=== PATIENT | female | born 1940 | race Caucasian/White ===

== ENCOUNTER → 2016-08-30 | Outpatient (CLI) | payer OTHER ==
[~2016-08-30] MED LIST: HYOSCYAMIN125 MCG/5 PO; HYOSCYAMINE0.15 MG; INDERAL LA 80 M80 M1; MACROBID 100 M100 M1 PO; NORCO 5-325 TA1 EACH PO; PERCOCET 5-3251 EACH PO; POTASSIUM20 PO; PREDNISONE50 MG PO; PRILOSEC 20 MG20 MG
== END ==
LOC: RAD 00:46
DX: Z12.31 Encounter for screening mammogram for malignant neoplasm of breast (principal)

== ENCOUNTER → 2016-11-08 | Outpatient (CLI) | payer OTHER | LOC: RAD 13:48 | DX: M19.012 Primary osteoarthritis, left shoulder (principal); M79.602 Pain in left arm ==

== ENCOUNTER → 2018-08-12 | Outpatient (CLI) | payer OTHER ==
[~2018-08-12] VITALS: Ht 157.5 cm; Wt 55.5 kg
[~2018-08-12] MED LIST changes: +ACETAMINOPHEN-1 EAC1 PO; +ESTRADIOL1 EAC7 TOP; +INDAPAMIDE2.5 MG PO; +KLOR-CON M1010 MEQ PO; +PRILOSEC OTC20 MG PO; +SINEMET 10-1001 EAC1 PO; +VALIUM5 MG PO; +ZANAFLEX2 MG PO
[2018-08-12 10:15] VITALS: BP 142/55
--- NOTE | 2018-08-12 10:42 | NUR ---
Pain Clinic Assessment: 1. History of Osteoarthritis: Not Applicable History of Rheumatoid Arthritis: Not Applicable 2. Height: 5 ft. 2 in. 157.5 cm. Weight: 122.4 lb. oz. 55.520 kg. Patient's BMI: 22.4 3. Vital Signs: BP: 142/55 Pulse: 54 Resp: 14 Temp: 02 Sat: 99 ECG Mon: 4. Pain Intensity: 4-7 5. Fall Risk: Dizziness: N Needs help standing or walking: N Fallen in the last 3 months: Y Fall risk comments: 6. Patient on Blood Thinner: None 7. History of Hypertension: N 8. Opioid Therapy greater than 6 weeks: N Opiate Contract Signed: 9. Risk Assessment Tool Provided: 10. Functional Assessment Tool: 11. Recreational Drug Use: Never Drug Type: Tobacco Use: Current Every Day Smoker Tobacco Type: Cigarettes Amount or Packs/day: 8/CIGS How Many Years: 65 Alcohol Use: No Frequency: Quant:
--- NOTE | 2018-08-25 08:39 | HPC ---
[facility] [place] [address] PAIN MANAGEMENT CONSULTATION Name: RAVI ORTIZ Room #: REG [facility].#: [id number] Admission: 08/12/18 ������������������ Attend Phys: Catalino Torres MD Discharge: ������������������ Date of : 36 Report #: [id number] THIS REPORT FOR: //name// CC: Farshad Torres DATE OF SERVICE: 08/12/2018 CHIEF COMPLAINT: Low back pain with radiation down the posterior aspect of both legs. The patient is a pleasant 77-year-old I am seeing today with her son, Reji who is a patient of our clinic. She is here today for evaluation of low back pain with radiculopathy. She reports that she has had longstanding back pain, but it has worsened over the course of the last 2 or 3 months. The pain is not constant, but it is becoming more severe when it comes on and it never completely goes away. She describes a dull, radiating pain in both sides of her low back with radiation down the posterior lateral aspect of her legs and the L5-S1 distribution. She has been using ice and that can be helpful and walking seems to help as well. She can get up, but it is difficult when she first stands. She has remained independent, however, living in her own home. She was treated in the early [address]s by Dr. Wayne Felix with 2 epidural injections. She remembers those as being helpful. MEDICATIONS: Estrogen, Klor-Con, Prilosec, carbidopa/levodopa for restless legs, hyoscyamine, diazepam 5 mg at bedtime for sleep, indapamide and acetaminophen with codeine averaging about #60 per month. She carefully uses her medications. Denies significant side effects. Bowels work fine. ALLERGIES: SULFA. PAST MEDICAL HISTORY: Positive for mild colitis, gastroesophageal reflux disease. PAST SURGICAL HISTORY: Cholecystectomy in 1974 and appendectomy in 1971. SOCIAL HISTORY: She is , lives alone independently. She can drive her own car, take care of her own house. Her son, Gonzalo is very supportive, he is here with her today and filled out her questionnaire. 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 They have gentle and comforting banter about them. She continues to smoke 8 cigarettes per day and has smoked for over 65 years. She does not complain of any shortness of breath nor does she carry the diagnosis of COPD. She does, however, have one of the known issues associated with smoking and that is chronic back pain. I have discussed smoking as one of the contributors to chronic back pain and she has been made aware. [facility] [address] [place] [address] PAIN MANAGEMENT CONSULTATION Name: RAVI ORTIZ Room #: REG [facility]#: [id number] Admission: 08/12/18 ������������������ Attend Phys: Catalino Torres MD Discharge: ������������������ Date of : 38 Report #: [id number] REVIEW OF SYSTEMS: Positive for some weight loss, decreased appetite, fatigue and weakness. She has had intermittent diarrhea. She complains of numbness and tingling later in the interview in her arms and hands, although this is not a primary complaint. She describes memory loss, confusion and at times, depression. PHYSICAL EXAMINATION: GENERAL: She is a pleasant female with no signs of dementia. No signs of depression or anxiety at this time. She is alert and oriented. VITAL SIGNS: Her blood pressure 145/55, heart rate 54, respirations 14. She is 5 feet 2 inches, 122 pounds, BMI is 22.4. She can independently move from sitting to standing, but it takes a little while to straighten up, but she walks. By the time she has taken about 15 steps, she is able to walk upright. Her gait becomes stronger and her stride becomes longer as she continues to walk. CHEST: Clear. CARDIAC: Her cardiac rhythm is slow and regular. There is no audible murmur. ABDOMEN: Soft. MUSCULOSKELETAL: Examination of the spine reveals mild rotational scoliosis to the right. There is slight tenderness in the mid spine, but mostly broad discomfort across the lower lumbar spine with tenderness along the paravertebral muscles all the way down to the sacrum. There is very minimal sacroiliac tenderness. Straight leg raising bilaterally reproduces some L5-S1 discomfort. Sensation is intact. There is no focal weakness noted. Deep tendon reflexes are 2+ in knees, ankles bilaterally and symmetrical. X-rays available none. IMPRESSION: 1. 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 She would probably benefit from an epidural injection, and I have recommended that we seek preauthorization. 2. Physical therapy evaluation and treatment has been ordered with therapeutic exercise and modalities for 2 sessions per week for 6 weeks, we will send this to [facility], their choice. 3. She was given information on smoking cessation programs. 4. Discussed important body mechanics to prevent aggravation of her low back pain. 5. I have ordered plain film x-ray of her lumbar spine to evaluate. If she begins to have more neuropathic features, we will consider an MRI. [address] [address] PAIN MANAGEMENT CONSULTATION Name: RAVI ORTIZ Room #: REG [facility]#: [id number] Admission: 08/12/18 ������������������ Attend Phys: Catalino Torres MD Discharge: ������������������ Date of : 36 Report #: [id number] Followup visit is planned in 1-2 weeks for epidural injection. ��������������������������������������������� <ELECTRONICALLY SIGNED> ���������������������������������������� By: Catalino Torres MD ��������������������������������������������� 08/25/18 0839 1809 0320 Catalino Torres MD /nt
== END ==
LOC: PAIN 06:56 → RAD 06:56 → PAIN 12:38
DX: M47.26 Other spondylosis with radiculopathy, lumbar region (principal); M51.16 Intervertebral disc disorders with radiculopathy, lumbar region

== ENCOUNTER → 2018-09-04 | Outpatient (CLI) | payer OTHER ==
[~2018-09-04] VITALS: Ht 160 cm; Wt 56.3 kg
--- NOTE | ~2018-09-04 | HPC ---
[facility] [place] [address] [place] [address] PAIN MANAGEMENT CONSULTATION Name: RAVI ORTIZ Room #: REG [facility].#: [id number] Admission: 09/04/18 ������������������ Attend Phys: Catalino Torres MD Discharge: ������������������ Date of : 38 Report #: [id number] THIS REPORT FOR: //name// CC: Farshad Torres DATE OF SERVICE: 09/04/2018 Followup visit for low back pain with radiculopathy. The patient was seen just 3 weeks ago. She is here today for an epidural injection. I have reviewed the x-rays today ordered in her last visit. Plain film x-rays are certainly not conclusive, but there is evidence of pathology that would cause her radicular symptoms. In 2015, she underwent an MRI, which showed mild subluxation. The new x-rays taken on 08/12/2018 show a grade 1 anterolisthesis of L4 on L5. Subluxation has increased since her previous study. There are no pars defects. This is felt to be degenerative and related to aging. An 8 mm is measured. We have discussed the epidural injections as the conservative treatment. Risks and benefits have been reviewed. She is here today with her son. Multiple questions were asked and answered. I would like her to continue with physical therapy 2 times a week for the next couple of weeks. I think she will benefit from core strengthening. IMPRESSION: Lumbar radiculopathy, bilateral L5-S1 distribution. This is likely related to stenosis related to L4-L5 anterolisthesis. PROCEDURE: Epidural steroid injection under fluoroscopic guidance. DESCRIPTION OF PROCEDURE: She was taken to fluoroscopic suite, placed prone, skin prepped with ChloraPrep. Skin anesthetized over the L4-L5 interspace. A 20-gauge Tuohy epidural needle advanced first attempt in the epidural space with loss of resistance technique. There was no blood or CSF aspirated. A 1 mL of Omnipaque injected. Good spread of dye observed in the epidural space followed by 3 mL of 0.5% lidocaine mixed with 80 mg of triamcinolone. She tolerated the procedure well and was observed for 45 minutes and discharged. Followup visit planned as needed. ��������������������������������������������� ���������������������������������������� By: ��������������������������������������������� 1821 0149 Catalino Torres MD /nt
[2018-09-04 13:45] VITALS: BP 149/70
--- NOTE | 2018-09-04 14:04 | NUR ---
Pain Clinic Assessment: 1. History of Osteoarthritis: Not Applicable History of Rheumatoid Arthritis: Not Applicable 2. Height: 5 ft. 3 in. 160.0 cm. Weight: 124.2 lb. oz. 56.337 kg. Patient's BMI: 22.0 3. Vital Signs: BP: 149/70 Pulse: 65 Resp: 18 Temp: 02 Sat: 100 ECG Mon: 4. Pain Intensity: 6 5. Fall Risk: Dizziness: N Needs help standing or walking: N Fallen in the last 3 months: N Fall risk comments: 6. Patient on Blood Thinner: None 7. History of Hypertension: N 8. Opioid Therapy greater than 6 weeks: N Opiate Contract Signed: 9. Risk Assessment Tool Provided: LOW RISK O/3 10. Functional Assessment Tool: 11. Recreational Drug Use: Never Drug Type: Tobacco Use: Current Every Day Smoker Tobacco Type: Cigarettes Amount or Packs/day: 1/2 PACK How Many Years: 20 Alcohol Use: No Frequency: Quant:
== END | disposition home or self-care (01) ==
LOC: PAIN 06:58
DX: M54.16 Radiculopathy, lumbar region (principal); M43.16 Spondylolisthesis, lumbar region; G89.29 Other chronic pain; F17.210 Nicotine dependence, cigarettes, uncomplicated; Z88.2 Allergy status to sulfonamides; Z79.899 Other long term (current) drug therapy; Z98.890 Other specified postprocedural states